=== PATIENT | female | born 1995 | race Caucasian/White ===

== ENCOUNTER 2018-07-17 04:14 | Emergency (ER) | payer OTHER ==
[2018-07-17 06:55] VITALS: BP 105/58
[2018-07-17 07:01] LABS: AMPHETAMINE QUAL UR NONE DETECTED (See below)
== END 2018-07-17 06:55 | disposition home or self-care (01) ==
LOC: EDBD 04:14 → ED 04:14
PROVIDERS: Emergency Medicine
DX: F10.129 Alcohol abuse with intoxication, unspecified (principal)
CPT/HCPCS: G0480; J2405; J7030